=== PATIENT | male | born 1935 | race Caucasian/White ===

== ENCOUNTER 2017-03-20 06:28 | Day surgery (SDC) | payer OTHER, MEDICARE ==
[~2017-03-20] VITALS: Ht 167.6 cm; Wt 75.7 kg
--- NOTE | ~2017-03-20 | O ---
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 PROCEDURE: Left lower lid retraction repair with full thickness skin graft from right shoulder to left lower lid with temporary tarsorrhaphy times 2. SURGEON: Maximo Benoit M.D. THREAD CUTTER TENDER: None. ANESTHESIA: General. COMPLICATIONS: None. 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 He presents today for a left lower lid and cheek intervention in order to attempt to preserve his ocular surface milieu. Informed consent was obtained to include but not limited to the potential risk for loss of vision, bleeding, infection, failure to improve the problem, the potential need for further surgery or treatment. DESCRIPTION OF PROCEDURE: The patient was taken to the operating room where 2% Xylocaine with epinephrine mixed with equal parts of 0.75% Marcaine with Wydase was administered transcutaneously and transconjunctivally to the left lower lid, left lateral canthus, the left cheek, and then subsequently the right shoulder. The patient was then prepped and draped in the usual sterile fashion for this procedure. A Jimbo clamp was used to clamp the left lateral canthus. A sharp canthotomy and cantholysis was subsequently performed. A short tarsal strip was then prepared, following which hemostasis was then re-achieved. [facility] [address] [place] [address] OPERATIVE REPORT Name: DAVEY RAGLAND Room #: DEP [facility].#: [id number] Admission: 03/20/17 Attend Phys: Maximo Benoit MD Discharge: 03/20/17 Date of : 37 Report #: [id number] An infraciliary incision was then made across the width of the lid. The dissection was carried down into the premalar tissues sharply. This allowed the left lower lid and cheek to swing as a unit. Two temporary tarsorrhaphy were then fashioned from a short section of IV tubing and a double armed pass from a 5-0 Prolene suture. The sutures were then tagged to the drape superiorly providing retraction at 2 different points in the lid. The tarsal strip was then secured to the internal portion of the lateral orbital tubercle with 2 interrupted 5-0 Prolene sutures. The lateral canthal angle was then sharply reformed. The residual defect in the left lower lid was then outlined in the supraclavicular space. The incisions were then made with a #15 blade and a full thickness skin graft harvested utilizing thin section techniques. The donor site was then closed with interrupted buried 5-0 Vicryl sutures deep, and then a running 5-0 Prolene subcuticular suture more superficially. The shoulder was dressed with Steri-Strips and Mastisol followed by an Op-Site. The full thickness skin graft was then defatted and subsequently fitted into its host bed in the left lower lid. Cardinal bites of 7-0 Vicryl sutures were used for securing it. The wound was then dressed with erythromycin ophthalmic ointment followed by several layers of Telfa, which were then followed by two eye pads, that were held in place with silk tape and Mastisol. The patient was subsequently transported to the recovery area, having tolerated the procedures well with no anesthetic or operative complications being noted. By: 1342 [id number] Maximo Benoit MD /nt
[~2017-03-20 06:28] MED LIST: ASPIR 8181 M1 PO; CALCIUM500 MG PO; CENTRUM SILVER1 EAC2 PO; FENOFIBRATE54 MG PO; GLUCOSAMINE CH1 EAC2 PO; IRON325 PO; METOPROLOL TART25 MG PO; OFEV100 MG PO; PRED FORTE 1% EY5 M1 OP; SIMBRINZA 1%-0.28 ML OP; TRAVATAN Z2.5 ML OPHTHALMIC; ZOCOR20 MG PO
[2017-03-20 11:00] VITALS: BP 114/71
== END 2017-03-20 14:50 | disposition home or self-care (01) ==
LOC: OR 06:28 → TBA 06:29 → OR 14:50
DX: H02.535 Eyelid retraction left lower eyelid (principal); H02.205 Unspecified lagophthalmos left lower eyelid
CPT/HCPCS: 50010; 50101; 50398; 51636; 56527; 56528; 56531; 62110; 62900; 70005